=== PATIENT | female | born 1945 | race Asian ===

== ENCOUNTER 2019-11-24 19:33 | Inpatient (IN) | payer MEDICAID ==
[~2019-11-24] VITALS: Ht 152.4 cm; Wt 54.0 kg
[2019-11-24 20:08] LABS: Basophils # (auto) 0 10 ^3/uL (0-0.2); Basophils % (auto) 0.6 % (0.0-2.0); Eosinophils # (auto) 0.4 10 ^3/uL (0-0.8); Eosinophils % (auto) 5.4 % (0.0-7.0); Hematocrit 37.2 % (36.0-46.0); Hemoglobin 12.3 g/dL (12.2-16.2); Lymphocytes # (auto) 2.8 10 ^3/uL (0.4-5.4); Lymphocytes % (auto) 39.2 % (10.0-50.0); Mean Corpuscular Hemoglobin 30.5 pg (28.0-32.0); Mean Corpuscular Volume 92.6 fL (80.0-100.0); Monocytes # (auto) 0.5 10 ^3/uL (0-1.3); Monocytes % (auto) 7.3 % (0.0-12.0); Neutrophils # (auto) 3.4 10 ^3/uL (1.6-8.6); Neutrophils % (auto) 47.5 % (37.0-80.0); Nucleated Red Blood Cells % 0.1 %; Platelet Count (auto) 238 10^3/uL (140-450); Red Blood Cells 4.02 10^6/uL (4.0-5.20); Red Cell Distribution Width 13.1 % (11.8-14.3); White Blood Cell 7.2 10^3/uL (4.4-10.8)
[2019-11-24 20:39] LABS: Alanine Aminotransferase 39 U/L (13-56); Albumin 3.7 g/dL (3.4-5.0); Anion Gap 6 (5-15); Aspartate Aminotransferase 28 U/L (15-37); BUN/Creatinine Ratio 17.8; Blood Urea Nitrogen 13 mg/dL (7-18); Calcium 8.4 mg/dL (8.5-10.1); Carbon Dioxide 25 mmol/L (21-32); Chloride 110 mmol/L (98-107); GFR African American 100 mL/min; GFR Non-African American 83 mL/min; Glucose 130 mg/dL (74-106); Potassium 3.5 mmol/L (3.5-5.1); Sodium 141 mmol/L (136-145)
[2019-11-24 20:44] LABS: Alkaline Phosphatase 77 U/L (45-117); Bilirubin, Total 0.4 mg/dL (0.2-1.0); Total Protein 7.4 g/dL (6.4-8.2)
[2019-11-24 20:58] LABS: Urine Bacteria FEW /hpf (None Seen); Urine Blood Negative /uL (Negative); Urine Mucus FEW (None Seen); Urine Specific Gravity 1.003 (1.001-1.035); Urine WBC 6 /hpf (0 - 5)
[2019-11-24] MEDS ORDERED: cloNIDine HCL 0.1 MG TAB PO ONE (21:15)
[2019-11-24] MEDS ORDERED: ASPirin-EC 81 mg tab PO ONE (21:30)
[2019-11-25] VITALS (7 sets, daily range): BP systolic 123–159; BP diastolic 64–82
[2019-11-25] MEDS ORDERED: MORPHINE SULF INJ 2 MG/ML SYRINGE 1ML IV PRN (00:30)
[2019-11-25] MEDS ORDERED: ONDANSETRON HCL 4 MG/2 ML VIAL IV PRN (00:30)
[2019-11-25] MEDS ORDERED: TEMAZEPAM 15 MG CAP PO PRN (00:30)
[2019-11-25] MEDS ORDERED: NITROGLYCERIN 0.4 MG SL TAB SL PRN (00:30)
[2019-11-25] MEDS ORDERED: LOSA-69 PO (04:48)
[2019-11-25] MEDS ORDERED: ADENOSINE 45 MG in GIVE UN-DILUTED 0 ML IV STA (08:52)
[2019-11-25] MEDS ORDERED: ASPirin 81 mg TAB PO SCH (10:00)
[2019-11-25] MEDS: FAMOTIDINE 20 MG TAB PO SCH (10:05)
[2019-11-25] MEDS: hydrALAZINE HCL 25 MG TAB PO SCH ×2 (10:06→21:09)
[2019-11-25] MEDS ORDERED: cefTRIAXone 1GM/50ML D5W 50 ML IV ONE (11:00)
[2019-11-25] MEDS: ATORVASTATIN 20 MG TAB PO SCH (21:09)
[2019-11-25] MEDS: ACETAMINOPHEN 325 MG TAB PO PRN (21:09)
[2019-11-25] MEDS ORDERED: ATORVASTATIN 20 MG TAB PO SCH (22:00)
[2019-11-26] VITALS (7 sets, daily range): BP systolic 118–160; BP diastolic 63–94
[2019-11-26 06:08] LABS: Basophils # (auto) 0 10 ^3/uL (0-0.2); Basophils % (auto) 0.9 % (0.0-2.0); Eosinophils # (auto) 0.5 10 ^3/uL (0-0.8); Eosinophils % (auto) 8.4 % (0.0-7.0); Hematocrit 36.3 % (36.0-46.0); Hemoglobin 12.2 g/dL (12.2-16.2); Mean Corpuscular Hemoglobin 30.9 pg (28.0-32.0); Mean Corpuscular Hgb Conc. 33.7 g/dL (32.0-36.0); Mean Corpuscular Volume 91.6 fL (80.0-100.0); Monocytes # (auto) 0.4 10 ^3/uL (0-1.3); Monocytes % (auto) 7.8 % (0.0-12.0); Neutrophils # (auto) 2.7 10 ^3/uL (1.6-8.6); Neutrophils % (auto) 46.9 % (37.0-80.0); Nucleated Red Blood Cells % 0.1 %; Platelet Count (auto) 228 10^3/uL (140-450); Red Blood Cells 3.96 10^6/uL (4.0-5.20); Red Cell Distribution Width 13.2 % (11.8-14.3); White Blood Cell 5.7 10^3/uL (4.4-10.8)
[2019-11-26 06:21] LABS: Potassium 3.8 mmol/L (3.5-5.1)
[2019-11-26 06:26] LABS: BUN/Creatinine Ratio 25.7; Calcium 8.5 mg/dL (8.5-10.1)
[2019-11-26] MEDS: cefTRIAXone 1GM/50ML D5W 50 ML IV SCH (09:15)
[2019-11-26] MEDS: ASPirin 81 mg TAB PO SCH (09:18)
[2019-11-26] MEDS: FAMOTIDINE 20 MG TAB PO SCH (09:18)
[2019-11-26] MEDS: LOSARTAN POTASSIUM 50 MG TAB PO SCH (09:19)
[2019-11-26] MEDS: hydrALAZINE HCL 25 MG TAB PO SCH ×2 (09:19→21:57)
[2019-11-26 14:21] LABS: INR 0.92 (0.9-1.15); Partial Thromboplastin Time 25.1 sec (23.0-31.2)
[2019-11-26] MEDS: ATORVASTATIN 20 MG TAB PO SCH (21:57)
[2019-11-26] MEDS ORDERED: LORazepam 2MG/ML-1ML VIAL IV PRN (22:00)
[2019-11-27 05:00] VITALS: BP 129/81
[2019-11-27] MEDS: cefTRIAXone 1GM/50ML D5W 50 ML IV SCH (08:47)
[2019-11-27] MEDS: hydrALAZINE HCL 25 MG TAB PO SCH ×2 (08:49→21:55)
[2019-11-27] MEDS: LOSARTAN POTASSIUM 50 MG TAB PO SCH (08:49)
[2019-11-27 09:00] VITALS: BP 159/75
[2019-11-27] MEDS: ASPirin 81 mg TAB PO SCH (09:33)
[2019-11-27] MEDS: FAMOTIDINE 20 MG TAB PO SCH (09:33)
[2019-11-27] MEDS ORDERED: VANCOMYCIN 1GM/250ML 250 ML IV ONE ×2 (10:30→10:41)
[2019-11-27] MEDS ORDERED: LIDOCAINE 2%HCL (LOCAL ANESTH.) INJ 20ML MDV ONE (10:31)
[2019-11-27] MEDS ORDERED: VANCOMYCIN HCL 1000 MG VL ONE (10:55)
[2019-11-27] MEDS ORDERED: fentaNYL CITRATE 100 MCG/2 ML VL ONE (10:55)
[2019-11-27] MEDS ORDERED: MIDAZOLAM HCL 1MG/1ML-2 ML VIAL ONE (10:56)
[2019-11-27] MEDS: ceFAZolin 1GM/50ML 50 ML IV SCH ×2 (14:02→21:10)
[2019-11-27 17:00] VITALS: BP 134/75
[2019-11-27] MEDS: ACETAMINOPHEN 325 MG TAB PO PRN (17:36)
[2019-11-27] MEDS: AMIODARONE HCL 200 MG TAB PO SCH (17:53)
[2019-11-27] MEDS: ATORVASTATIN 20 MG TAB PO SCH (21:10)
[2019-11-27 22:00] VITALS: BP 155/92
[2019-11-28] MEDS: ceFAZolin 1GM/50ML 50 ML IV SCH (04:35)
[2019-11-28] MEDS: ACETAMINOPHEN 325 MG TAB PO PRN (04:36)
[2019-11-28 05:30] VITALS: BP 133/76
[2019-11-28 08:00] VITALS: BP 142/81
[2019-11-28] MEDS: AMIODARONE HCL 200 MG TAB PO SCH (09:02)
[2019-11-28] MEDS: FAMOTIDINE 20 MG TAB PO SCH (09:02)
[2019-11-28] MEDS: LOSARTAN POTASSIUM 50 MG TAB PO SCH (09:02)
[2019-11-28] MEDS: ASPirin 81 mg TAB PO SCH (09:03)
[2019-11-28] MEDS: hydrALAZINE HCL 25 MG TAB PO SCH (09:03)
[2019-11-28] MEDS: cefTRIAXone 1GM/50ML D5W 50 ML IV SCH (09:03)
[2019-11-28 12:00] VITALS: BP 141/89
[2019-11-28] MEDS ORDERED: ATOR20TA50 PO (13:42)
[2019-11-28] MEDS ORDERED: ASPI325T4 PO (13:42)
[2019-11-28] MEDS ORDERED: AMIO200T33 PO (13:46)
[2019-11-28] MEDS ORDERED: HYDR12.56 PO (13:47)
[2019-11-28] MEDS ORDERED: LOSA-69 PO (13:47)
[2019-11-28 14:08] VITALS: BP 141/89
[2019-11-28] MEDS ORDERED: AMLO10TA13 PO (14:10)
== END 2019-11-28 15:10 | disposition home or self-care (01) | DRG 171 ==
LOC: ER 19:33 → TELE 19:34 → TELE-WESTW 11-25 01:40
PROVIDERS: ADMIT Nurse Practitioner; ATTEND Internal Medicine Nephrology
PROC: 0JH606Z Insertion of Pacemaker, Dual Chamber into Chest Subcutaneous Tissue and Fascia, Open Approach (ICD-10-PCS; principal; 2019-11-27)
PROC: 02H63JZ Insertion of Pacemaker Lead into Right Atrium, Percutaneous Approach (ICD-10-PCS; 2019-11-27)
PROC: 02HK3JZ Insertion of Pacemaker Lead into Right Ventricle, Percutaneous Approach (ICD-10-PCS; 2019-11-27)
DX: I49.5 Sick sinus syndrome (principal); N39.0 Urinary tract infection, site not specified; I10 Essential (primary) hypertension; E78.5 Hyperlipidemia, unspecified; Z95.0 Presence of cardiac pacemaker; Z20.828 Contact with and (suspected) exposure to other viral communicable diseases
CPT/HCPCS: 33208; 36415; 70450; 70551; 71045; 78452; 80048; 80053; 81001; 82962; 83036; 84439; 84443; 84484; 85025; 85610; 85730; 86850; 86900; 86901; 87040; 87086; 93005; 93017; 93306; 93886; 93925; 99152; 99153; C1785; G0378; J0153; J0690; J0696; J2250

== ENCOUNTER 2021-11-02 10:43 | Emergency (ER) | payer MEDICAID ==
[~2021-11-02] VITALS: Ht 152.4 cm; Wt 53.8 kg
[~2021-11-02 10:43] MED LIST: AMIO200T33 PO; ATOR20TA50 PO; LOSA-69 PO
[2021-11-02 13:59] LABS: Basophils # (auto) 0 10 ^3/uL (0-0.2); Basophils % (auto) 0.5 % (0.0-2.0); Eosinophils # (auto) 0.2 10 ^3/uL (0-0.8); Eosinophils % (auto) 2.5 % (0.0-7.0); Hematocrit 38.5 % (36.0-46.0); Hemoglobin 12.8 g/dL (12.2-16.2); Lymphocytes # (auto) 3.1 10 ^3/uL (0.4-5.4); Mean Corpuscular Hemoglobin 30.6 pg (28.0-32.0); Mean Corpuscular Hgb Conc. 33.3 g/dL (32.0-36.0); Monocytes # (auto) 0.7 10 ^3/uL (0-1.3); Monocytes % (auto) 7.2 % (0.0-12.0); Neutrophils # (auto) 5.1 10 ^3/uL (1.6-8.6); Neutrophils % (auto) 55.8 % (37.0-80.0); Red Blood Cells 4.19 10^6/uL (4.0-5.20); Red Cell Distribution Width 12.9 % (11.8-14.3); White Blood Cell 9.2 10^3/uL (4.4-10.8)
[2021-11-02 14:05] VITALS: BP 122/68
[2021-11-02 14:22] LABS: Urine Bacteria NONE SEEN /hpf (None Seen); Urine Blood TRACE /uL (Negative); Urine Specific Gravity 1.017 (1.001-1.035); Urine WBC 68 /hpf (0 - 5)
[2021-11-02 14:23] LABS: Anion Gap 7 (5-15); Blood Urea Nitrogen 29 mg/dL (7-18); Carbon Dioxide 29 mmol/L (21-32); Chloride 105 mmol/L (98-107); Glucose 133 mg/dL (74-106); Sodium 141 mmol/L (136-145)
[2021-11-02 14:24] LABS: BUN/Creatinine Ratio 33.7; Calcium 9.4 mg/dL (8.5-10.1); GFR African American 83 mL/min; GFR Non-African American 68 mL/min
[2021-11-02] MEDS ORDERED: CIPR-173 PO (14:35)
== END 2021-11-02 14:40 | disposition home or self-care (01) ==
LOC: ER 10:43
DX: N39.0 Urinary tract infection, site not specified (principal); I12.9 Hypertensive chronic kidney disease with stage 1 through stage 4 chronic kidney disease, or unspecified chronic kidney disease; N18.2 Chronic kidney disease, stage 2 (mild); Z79.2 Long term (current) use of antibiotics; Z79.899 Other long term (current) drug therapy
CPT/HCPCS: 36415; 80048; 81001; 82962; 83036; 85025

== ENCOUNTER → 2022-09-13 | Outpatient (CLI) | payer MEDICAID ==
[~2022-09-13] VITALS: Ht 152.4 cm; Wt 49.9 kg
[~2022-09-13] MED LIST changes: +ADENOSINE 42 MG in GIVE UN-DILUTED 0 ML IV STA; +CIPR-173 PO; -LOSA-69 PO; +LOSA50TA46 PO
[2022-09-13 08:26] VITALS: BP 133/79
== END | disposition home or self-care (01) ==
LOC: XYW 07:24
PROVIDERS: ATTEND Internal Medicine
DX: R07.9 Chest pain, unspecified (principal); R07.89 Other chest pain
CPT/HCPCS: 78452; 93017; A9500; J0153

== ENCOUNTER 2023-07-27 11:19 | Emergency (ER) | payer MEDICAID ==
[~2023-07-27] VITALS: Ht 162.6 cm; Wt 55.0 kg
[~2023-07-27 11:19] MED LIST changes: -ADENOSINE 42 MG in GIVE UN-DILUTED 0 ML IV STA; +LOSA-534 PO; -LOSA50TA46 PO
[2023-07-27 13:34] VITALS: BP 147/72; PULSE 65; RESP 18; TEMP 97.9; O2SAT 98
[2023-07-27] MEDS: ACETAMINOPHEN 500 MG TAB PO ONE (14:00)
[2023-07-27] MEDS ORDERED: ACET-1080 PO (14:52)
[2023-07-27] MEDS ORDERED: CEPH500C PO (14:52)
== END 2023-07-27 15:04 | disposition home or self-care (01) ==
LOC: EDBD 11:19 → ER 11:19
DX: S01.01XA Laceration without foreign body of scalp, initial encounter (principal); S16.1XXA Strain of muscle, fascia and tendon at neck level, initial encounter; I10 Essential (primary) hypertension; E11.9 Type 2 diabetes mellitus without complications; E78.5 Hyperlipidemia, unspecified; Z95.0 Presence of cardiac pacemaker; Z79.2 Long term (current) use of antibiotics; Z79.899 Other long term (current) drug therapy; V43.52XA Car driver injured in collision with other type car in traffic accident, initial encounter; Y93.89 Activity, other specified; Y92.410 Unspecified street and highway as the place of occurrence of the external cause; Y99.8 Other external cause status
CPT/HCPCS: 12002; 70450; 72125

== ENCOUNTER → 2024-01-08 | Outpatient (CLI) | payer MEDICAID ==
[~2024-01-08] MED LIST changes: +ACET-1080 PO; +CEPH500C PO; +REGADENOSON 0.4 MG/5 ML SYRG IV ONE
[2024-01-08] MEDS: REGADENOSON 0.4 MG/5 ML SYRG IV ONE (12:17)
== END | disposition home or self-care (01) ==
LOC: XYW 10:51
PROVIDERS: ATTEND Internal Medicine
DX: I99.8 Other disorder of circulatory system (principal); R06.02 Shortness of breath
CPT/HCPCS: 78452; 93017; A9500; J2785

== ENCOUNTER → 2024-01-14 | Outpatient (CLI) | payer MEDICAID ==
[~2024-01-14] MED LIST changes: -REGADENOSON 0.4 MG/5 ML SYRG IV ONE
== END | disposition home or self-care (01) ==
LOC: XYW 08:40
PROVIDERS: ATTEND Internal Medicine
DX: I47.19 Other supraventricular tachycardia (principal)
CPT/HCPCS: 93306

== ENCOUNTER 2024-04-03 06:16 | Inpatient (IN) | payer MEDICAID ==
[2024-03-31 09:19] LABS: Urine Bacteria None Seen /hpf (None Seen)
[2024-03-31 09:57] LABS: INR 0.95 (0.9-1.15); Partial Thromboplastin Time 25.6 SEC (24.5-34.5); Prothrombin Time 10.1 sec (9.3-11.8)
[2024-03-31 09:58] LABS: Basophils # (auto) 0 10 ^3/uL (0-0.2); Basophils % (auto) 0.5 % (0.0-2.0); Eosinophils # (auto) 0.2 10 ^3/uL (0-0.8); Eosinophils % (auto) 3.5 % (0.0-7.0); Hemoglobin 13.4 g/dL (12.2-16.2); Lymphocytes # (auto) 1.9 10 ^3/uL (0.4-5.4); Lymphocytes % (auto) 29.7 % (10.0-50.0); Mean Corpuscular Hemoglobin 31.7 pg (28.0-32.0); Mean Corpuscular Hgb Conc. 34.3 g/dL (32.0-36.0); Mean Corpuscular Volume 92.5 fL (80.0-100.0); Monocytes # (auto) 0.3 10 ^3/uL (0-1.3); Neutrophils # (auto) 3.8 10 ^3/uL (1.6-8.6); Neutrophils % (auto) 61.3 % (37.0-80.0); Nucleated Red Blood Cells % 0.1 %; Platelet Count (auto) 233 10^3/uL (140-450); Red Blood Cells 4.21 10^6/uL (4.0-5.20); White Blood Cell 6.3 10^3/uL (4.4-10.8)
[2024-03-31 10:00] LABS: Urine Blood Negative /uL (Negative); Urine Clarity Clear (Clear); Urine Color Yellow (Yellow); Urine Mucus FEW (None Seen); Urine Protein, UAD Negative (Negative); Urine Specific Gravity 1.017 (1.001-1.035); Urine Squamous Epithelial Cell FEW /hpf (<5); Urine Urobilinogen Normal (Negative); Urine WBC 2 /hpf (0 - 5); Urine pH 6.5 (5.0-9.0)
[2024-03-31 10:11] LABS: Alkaline Phosphatase 81 U/L (46-116); Anion Gap 7 (5-15); BUN/Creatinine Ratio 17.6 (10.0-20.0); Blood Urea Nitrogen 16 mg/dL (9-23); Calcium 9.7 mg/dL (8.7-10.4); Carbon Dioxide 28 mmol/L (20-31); Chloride 106 mmol/L (98-107); Sodium 141 mmol/L (136-145)
[2024-03-31 10:12] LABS: Albumin 4.2 g/dL (3.2-4.8); Bilirubin, Total 0.9 mg/dL (0.2-1.0); Total Protein 6.8 g/dL (5.7-8.2)
[2024-03-31 10:16] LABS: Alanine Aminotransferase 44 U/L (7-40); Aspartate Aminotransferase 41 U/L (13-40); Glucose 301 mg/dL (74-106); Potassium 3.4 mmol/L (3.5-5.1)
[2024-04-03] VITALS (7 sets, daily range): BP systolic 118–128; BP diastolic 58–67; PULSE 66–75; RESP 16–18; TEMP 97.9–98.1; O2SAT 94–95
[~2024-04-03] VITALS: Ht 149.9 cm; Wt 58.6 kg
[2024-04-03] MEDS: ceFAZolin 2 GM/D5W100ml 100 ML IV ONE (06:43)
[2024-04-03] MEDS: TRANEXAMIC ACID 20 ML ONE (06:46)
[2024-04-03] MEDS: VANCOMYCIN HCL 1000 MG VL ONE (06:47)
[2024-04-03] MEDS: BUPIVACAINE HCL 50 ML ONE (07:08)
[2024-04-03] MEDS: ROPIVACAINE 0.5% (5MG/ML) 20ML AMPULE IJ ONE (07:08)
[2024-04-03] MEDS ORDERED: fentaNYL CITRATE 100 MCG/2 ML VL ONE (07:10)
[2024-04-03] MEDS ORDERED: ROCURONIUM 10MG/ML 10ML VIAL IV ONE (07:11)
[2024-04-03] MEDS ORDERED: PROPOFOL 10 MG/ML 20 ML IV ONE (07:11)
[2024-04-03] MEDS ORDERED: MIDAZOLAM HCL 2MG/2ML 2ml VIAL (1mg/ml) ONE (07:11)
[2024-04-03] MEDS ORDERED: DexAMETHasone SOD PHOS 10MG/1ML VIAL INJ ONE (07:12)
[2024-04-03] MEDS ORDERED: ONDANSETRON HCL 4 MG/2 ML VIAL ONE (07:12)
[2024-04-03] MEDS ORDERED: LIDOCAINE 1% INJ PF 5ML AMP ONE (07:39)
[2024-04-03] MEDS ORDERED: ePHEDrine SULFATE 50 MG/ML AMP ONE (07:53)
[2024-04-03] MEDS ORDERED: LABETALOL HCL 5 MG/ML ML 20ML VIAL IV ONE (08:10)
[2024-04-03] MEDS ORDERED: SUGAMMADEX 200mg/2ml Vial (100MG/ML) IV ONE (09:03)
[2024-04-03] MEDS: VANCOMYCIN HCL 1000 MG VL IV ONE (10:00)
[2024-04-03] MEDS ORDERED: HYDROcodone-ACET 10/325MG TAB PO PRN (10:30)
[2024-04-03] MEDS ORDERED: ONDANSETRON HCL 4 MG/2 ML VIAL IV PRN (10:30)
[2024-04-03] MEDS ORDERED: ACETAMINOPHEN 325 MG TAB PO PRN (10:30)
[2024-04-03] MEDS ORDERED: NITROGLYCERIN 0.4 MG SL TAB SL PRN (10:30)
[2024-04-03] MEDS ORDERED: LACTATED RINGER'S 1,000 ML IV SCH (10:30)
[2024-04-03] MEDS ORDERED: MORPHINE SULFATE INJ 2 MG/ml SYRG IV PRN (10:30)
--- NOTE | 2024-04-03 10:36 | DVHOP2 ---
Operative Report - 2 Report Details Date: 04/03/24 Preop Diagnosis: Right shoulder glenohumeral arthritis Postop Diagnosis: Right shoulder glenohumeral arthritis Surgeon: Cristhian Vu MD Anesthesiologist: Carlos sanchez CRNA Anesthesia: General, Regional Implant: Fx shoulder system, 10 mm humerus stem, 6 mm retentive liner, 36 mm glenosphere with standard glenosphere, 0 mm, four screws through the base plate Consent: The patient was informed of the risks and benefits of the procedure. These include but are not limited to complications of anesthesia, postoperative infection, incomplete relief of symptoms, recurrence of symptoms, damage to blood vessels, nerves and tendons, deep venous thrombosis, pulmonary embolism and possible need for repeat surgery in the future. Complications: None Estimated Blood Loss: 50 mL Indications for Surgery: The patient is a 78-year-old female who presented to the clinic with a history of chronic severe pain. Clinical and radiological evaluation demonstrated severe glenohumeral arthritis. Nonoperative and operative management options were discussed with her. Surgery in the form of shoulder arthroplasty was discussed. Benefits, risks and treatment alternatives were discussed. Specific complications of the surgery such as neurovascular injury, infection, arthrofibrosis, loss of limb or life were discussed. The patient decided to proceed with the surgical option. Name of Procedure Performed Right reverse total shoulder arthroplasty with open biceps tenodesis Procedure Details Procedure Details: The patient was identified in the preoperative holding area and the surgical site was marked. The consent was verified. The patient was brought into the operating room and placed supine on the operating table. General anesthesia was administered. The patient was brought into the beachchair position at 45 degrees angle. The extremity was prepped and draped in the usual sterile manner with Betadine and ChloraPrep. A timeout was called out to confirm the identity of the patient, the nature of surgery, the site of surgery, development of implants and x-rays and allergies to medications. All the bony prominences were appropriately padded Exposure: A standard deltopectoral approach was used. An incision was made from the superior portion of the coracoid to the upper arm lateral to the axillary line. The skin and the subcutaneous tissue were dissected. The deep fascia was incised. The cephalic vein was identified. The coracoid was identified and the conjoined tendon was also identified. The pectoralis tendon, approximately 1 cm was released. The biceps tendon was identified and tenodesis was carried out. This was sutured to the pectoralis major tendon with the help of FiberWire suture and was cut proximally. Honre retractors were inserted. Adequate exposure was noted. The deltoid was released with the help of a Cruz elevator for better exposure. The subscapularis tendon was identified. The subscapularis tendon was released. Circumflex arteries and veins were coagulated. This was whipstitched for later identification and possible repair. The humeral head was now exposed with external rotation and release of the inferior capsule. This was gently dislocated using a Darrach retractor. Significant arthritis with full-thickness cartilage defect was noted. Significant osteophytes including large humeral head inferior osteophyte were also noted. A retractor was inserted below the CA ligament as well. There was a partial tear of supraspinatus and infraspinatus with some footprint exposed. Humeral cut: The retroversion was set to 30 degrees. An external guide was used and affixed to the bone with the help of guide pins. Next, a saw was used to create the humeral cut. This was just above the rotator cuff footprint. Next, a small drill was used to find the intramedullary canal. Next, the humeral side was now prepared. This was now reamed up to 10 mm. Glenoid exposure and implantation of glenoid prosthesis: A Darrach retractor was then inserted to retract the humeral head and expose the glenoid. Release of the anterior and posterior capsule was carried out. Release of the middle and inferior glenohumeral ligament was carried out. Superior labrum and biceps were removed. Significant cartilage damage of the glenoid was noted. Minimal retroversion was noted. A tug test was performed to confirm the position of the axillary nerve which was out of the surgical field. The inferior capsule was left intact and was released only with the help of a blunt elevator. Next, the center of the glenoid was marked with the help of a Bovie using the biceps and the coracoid as landmarks. Next a guide was inserted, a guidewire was inserted through the central portion. This was found to be in anatomic location, slightly inferior to the center. Next the central reamer was inserted. Next the hand-held peripheral reamer was inserted. The periphery was reamed, minimal cartilage was removed. Appropriate soft tissue resection was carried out. Minimal cartilage was removed to preserve the underlying bone. Next the baseplate was inserted with the help of an chief librarian music department A central post was applied to the final implant on the back table and inserted with gentle taps. It was rotated to align the screws in the appropriate directions. Next a drill guide was used to drill the hole for the screws. Locking and nonlocking screws were used for excellent compression and fixation. The glenosphere was now implanted on top of the baseplate over the guidewire with the screw. The screw was rotated over the glenosphere for excellent fixation. No impingement was noted. A Chary was used to test the stability of baseplate as well as the glenosphere and was found to be very secure. Next, a trial stem was inserted. Next, a provisional soft tissue tensioning assessment was done with an attempt to reduce with a 3 mm trial liner. This was found to have 2 mm of shuck. The final stem and liner was opened up. The joint was now trialed again with a 3 and six mm liner and 6 was noticed to be excellent. A final 6 mm implant was opened up and inserted on the humeral stem. This was tapped and excellent fixation was noted. Excellent stability and range of motion was noted, abduction of 120 and flexion up to 120 degrees. The shoulder did not dislocate with adduction, internal rotation and extension or with abduction and external rotation. Shuck test was acceptable with approximately 1 mm of gap with manual longitudinal traction. The fixation was tested with the help of a Chary clamp. Excellent fixation was noted. Irrigation was given with bulb syringe lavage with bacitracin and normal saline, Betadine and vancomycin powder was applied as well. All bony debris was also removed. C-arm was used throughout the procedure for evaluation of guidewire, humeral cut, baseplate and glenosphere position and finally humerus stem position and joint reduction. The subscapularis was approximated with the help of looped suture tapes through the bone tunnel. Some approximation was noted. The deep tissue, skin and the subcutaneous tissue were closed with 0 Vicryl, 2-0 Vicryl, 3-0 Monocryl and daisy. Sterile dressing was applied. The patient was placed in a shoulder immobilizer. Condition Good Disposition Still a Patient CRISTHIAN VU MD Apr 03, 2024 10:36
[2024-04-03] MEDS ORDERED: ONDANSETRON HCL 4 MG/2 ML VIAL IV ONE (10:45)
[2024-04-03] MEDS: hydrALAZINE HCL 20 MG/ML VL ONE (11:14)
[2024-04-03] MEDS: hydrALAZINE HCL 20 MG/ML VL IV PRN (11:18)
[2024-04-03] MEDS: HYDROmorphone HCL 2 MG/ML VL/or syr IV PRN ×2 (11:32→11:48)
[2024-04-03] MEDS: CLINDAMYCIN 600MG IV 50 ML IV SCH (12:00)
[2024-04-03] MEDS ORDERED: SEMA3TAB2 (13:31)
[2024-04-03] MEDS ORDERED: METO25TA93 (13:31)
[2024-04-03] MEDS ORDERED: HYDR12.55 (13:31)
[2024-04-03] MEDS ORDERED: FLEC1TAB PO (13:31)
[2024-04-03 14:10] LABS: Chloride 107 mmol/L (98-107); Potassium 4.3 mmol/L (3.5-5.1); Sodium 141 mmol/L (136-145)
[2024-04-03 14:11] LABS: Calcium 8.8 mg/dL (8.7-10.4)
[2024-04-03 14:16] LABS: BUN/Creatinine Ratio 22.8 (10.0-20.0); Blood Urea Nitrogen 18 mg/dL (9-23)
[2024-04-03 14:21] LABS: Glucose 155 mg/dL (74-106)
[2024-04-03] MEDS ORDERED: HYDROmorphone HCL 2 MG/ML VL/or syr IV PRN (14:30)
[2024-04-03] MEDS ORDERED: DEXTROSE (50%) 50ML SYRG IV PRN (14:30)
[2024-04-03] MEDS: LACTATED RINGER'S 1,000 ML IV SCH (14:30)
[2024-04-03] MEDS ORDERED: guaiFENesin 200 MG/10 ML UD PO PRN (14:30)
--- NOTE | 2024-04-03 14:37 | DVHHP2 ---
Review of Systems Allergies: Coded Allergies: NO KNOWN ALLERGIES (Unverified , 09/13/22) Medications Current Medications Medications Dose Ordered Sig/Stanley Route Start Time Stop Time Status Last Admin Dose Admin Clindamycin Phosphate 50 ml @ 50 mls/hr Q6HR IV 04/03/24 12:00 04/04/24 00:59 Acetaminophen 650 mg Q6HP PRN PO 04/03/24 10:30 Ondansetron HCl 4 mg Q6HP PRN IV 04/03/24 10:30 Docusate Sodium 100 mg Q12HR PO 04/03/24 22:00 Acetaminophen/ Hydrocodone Bitart 1 tab Q4HP PRN PO 04/03/24 10:30 Nitroglycerin 0.4 mg Q5MINP PRN SL 04/03/24 10:30 Morphine Sulfate 2 mg Q30M PRN IV 04/03/24 10:30 Hydromorphone HCl 0.25 mg Q10M PRN IV 04/03/24 10:45 04/03/24 18:00 04/03/24 11:48 0.25 MG Atorvastatin Calcium 20 mg HS PO 04/03/24 22:00 UNV Losartan Potassium 50 mg DAILY PO 04/04/24 10:00 UNV Lactated Ringer's 1,000 ml @ 75 mls/hr [id number] IV 04/03/24 14:30 UNV Hydromorphone HCl 1 mg Q3HP PRN IV 04/03/24 14:30 UNV Flecainide Acetate 50 mg Q12HR PO 04/03/24 22:00 UNV Metoprolol Succinate 25 mg DAILY PO 04/04/24 10:00 UNV Diagnostic Test (Pha) 1 strip ACHS 04/03/24 17:00 UNV Insulin Human Regular ACHS SC 04/03/24 17:00 UNV Dextrose 50 ml UD PRN IV 04/03/24 14:30 UNV Guaifenesin 200 mg Q6HP PRN PO 04/03/24 14:30 UNV Exam Vital Signs Vital Signs Date Time Temp Pulse Resp B/P (MAP) Pulse Ox O2 Delivery O2 Flow Rate FiO2 04/03/24 13:35 97.9 70 18 128/64 (85) 94 97.9 04/03/24 13:26 Room Air* 0 21 Labs/Xrays Labs Test 04/03/24 13:52 04/03/24 12:51 03/31/24 09:13 Range/Units Sodium Level 141 136-145 mmol/L Potassium Level 4.3 3.5-5.1 mmol/L Chloride Level 107 98-107 mmol/L Carbon Dioxide Level 26 20-31 mmol/L Blood Urea Nitrogen 18 9-23 mg/dL Creatinine 0.79 0.550-1.02 mg/dL Glomerular Filtration Rate Calc 77 >90 mL/min BUN/Creatinine Ratio 22.8 H 10.0-20.0 Serum Glucose 155 H 74-106 mg/dL Calcium Level 8.8 8.7-10.4 mg/dL POC Glucose 119 H 70-106 mg/dl White Blood Count 6.3 4.4-10.8 10^3/uL Red Blood Count 4.21 4.0-5.20 10^6/uL Hemoglobin 13.4 12.2-16.2 g/dL Hematocrit 39.0 36.0-46.0 % Mean Corpuscular Volume 92.5 80.0-100.0 fL Mean Corpuscular Hemoglobin 31.7 28.0-32.0 pg Mean Corpuscular Hemoglobin Concent 34.3 32.0-36.0 g/dL Red Cell Distribution Width 13.0 11.8-14.3 % Platelet Count 233 140-450 10^3/uL Mean Platelet Volume 7.6 6.9-10.8 fL Neutrophils (%) (Auto) 61.3 37.0-80.0 % Lymphocytes (%) (Auto) 29.7 10.0-50.0 % Monocytes (%) (Auto) 5.0 0.0-12.0 % Eosinophils (%) (Auto) 3.5 0.0-7.0 % Basophils (%) (Auto) 0.5 0.0-2.0 % Neutrophils # (Auto) 3.8 1.6-8.6 10 ^3/uL Lymphocytes # (Auto) 1.9 0.4-5.4 10 ^3/uL Monocytes # (Auto) 0.3 0-1.3 10 ^3/uL Eosinophils # (Auto) 0.2 0-0.8 10 ^3/uL Basophils # (Auto) 0 0-0.2 10 ^3/uL Nucleated Red Blood Cells 0.1 % Prothrombin Time 10.1 9.3-11.8 sec Prothrombin Time INR 0.95 0.9-1.15 Activated Partial Thromboplast Time 25.6 24.5-34.5 SEC Urine Color Yellow Yellow Urine Clarity Clear Clear Urine pH 6.5 5.0-9.0 Urine Specific [place] 1.017 1.001-1.035 Urine Protein Negative Negative Urine Ketones Negative Negative Urine Blood Negative Negative /uL Urine Nitrite Negative Negative Urine Bilirubin Negative Negative Urine Urobilinogen Normal Negative mg/dL Urine Leukocyte Esterase Negative Negative /uL Urine RBC 1 0 - 4 /hpf Urine WBC 2 0 - 5 /hpf Urine Squamous Epithelial Cells Few <5 /hpf Urine Bacteria None seen None Seen /hpf Urine Mucus Few None Seen Urine Glucose 4+ H Normal mg/dL Total Bilirubin 0.9 0.2-1.0 mg/dL Aspartate Amino Transferase (AST) 41 H 13-40 U/L Alanine Aminotransferase (ALT) 44 H 7-40 U/L Alkaline Phosphatase 81 46-116 U/L Total Protein 6.8 5.7-8.2 g/dL Albumin 4.2 3.2-4.8 g/dL Assessment/Plan Assessment/Plan see dictated note Plan discussed with: Patient, Daughter My Orders Orders - PAM CORTEZ MD Procedure Category Date Status Time Lactated Ringer's PHA 04/03/24 Logged 14:30 Hydromorphone PHA 04/03/24 Logged Injection (Dilaudid 14:30 Ok To Leave On Tele ORDERS 04/03/24 Transmitted 14:23 Flecainide Tablet PHA 04/03/24 Logged (Tambocor Tablet) 22:00 Metoprolol Xl PHA 04/04/24 Logged Succinate (Toprol Xl) 10:00 Glucose Blood PHA 04/03/24 Logged (Accu-Chek Comfort 17:00 Insulin R (Human) PHA 04/03/24 Logged (Insulin R) 17:00 Dextrose 50% Syringe PHA 04/03/24 Logged 14:30 Complete Blood Count LAB 04/04/24 Verified 06:00 Comprehensive LAB 04/04/24 Verified Metabolic Panel 06:00 Hemoglobin A1c LAB 04/04/24 Verified 06:00 Guaifenesin Plain PHA 04/03/24 Logged Liquid (Robitussin [place] 14:30 Chest Portable XY 04/03/24 Logged 14:33 Date of Service: Apr 03, 2024 Billing Provider: PAM CORTEZ MD Common Visit Codes: 35205-BSVQFLF INP/OBS CARE (HIGH) Secondary Visit Codes: [id number] CARE PLAN 30 MINUTES PAM CORTEZ MD Apr 03, 2024 14:37
[2024-04-03 14:46] LABS: Anion Gap 8 (5-15); Carbon Dioxide 26 mmol/L (20-31)
--- NOTE | 2024-04-03 14:57 | DVH ---
CHEST RADIOGRAPH Indication: a fib Technique: Single frontal view of the chest was obtained COMPARISON: CHEST XRAY 1 VIEW on DOS: 11/28/19, CHEST PORTABLE on DOS: 11/27/19 FINDINGS: There is increased interstitial prominence, greater centrally. No pneumothorax or consolidative infil trates. There is a calcified granuloma in the right upper lobe. The heart is enlarged. The aortic ar ch is calcific. There are postoperative changes of left pacemaker and right shoulder reverse total a rthroplasty. IMPRESSION: 1. Increased interstitial prominence may be due to reactive airways disease or mild CHF. 2. Cardiomegaly and left chest pacemaker. 3. Recent postoperative changes of right shoulder arthroplasty, not fully imaged here.
--- NOTE | 2024-04-03 15:18 | DVHHP ---
HISTORY OF PRESENT ILLNESS: The patient is a 78-year-old lady who was admitted after she underwent surgery on the right shoulder for DJD of the shoulder. The patient at this time denies any significant pain. No chest pain or shortness of breath. No nausea or vomiting. REVIEW OF SYSTEMS: Review of rest of systems are otherwise currently negative. PAST MEDICAL HISTORY: Significant for paroxysmal atrial fibrillation and status post pacemaker for sick sinus, hyperlipidemia, hypertension, diabetes mellitus. MEDICATIONS: Include Lipitor, flecainide, metoprolol, hydrochlorothiazide, semaglutide. ALLERGIES: No known drug allergies. SOCIAL HISTORY: No history of smoking or alcohol. Lives at home with her daughter. FAMILY HISTORY: Negative. PHYSICAL EXAMINATION: GENERAL: The patient is awake, alert. VITAL SIGNS: Temperature 97.9, pulse 70 per minute, blood pressure 128/64. SHEENT: Unremarkable. NECK: There is no JVD, no pedal edema. LUNGS: Equal bilaterally. No added sounds. CARDIOVASCULAR: S1, S2 is regular, no murmurs. ABDOMEN: Soft. There is no organomegaly. NEUROLOGIC: Nonfocal. MUSCULOSKELETAL: The right shoulder is currently in sling. ASSESSMENT AND PLAN: * Diabetes mellitus. She was placed on sliding scale insulin and hemoglobin A1c will be checked. * Hypertension. * History of atrial fibrillation for which she will continue on flecainide. * Status post pacemaker for sick sinus syndrome. * Hyperlipidemia. * Status post right shoulder surgery for which she will be placed on pain medication and followed up by Dr. Vu. Advance care planning for the patient. She is a full code. Time spent was 19 minutes. MD TRUDY Yancey/ELDER TID: [id number] RECEIPT: [id number]
--- NOTE | 2024-04-03 16:54 | DVH ---
C-ARM FLUOROSCOPY: PROCEDURE: Right shoulder ORIF FLUOROSCOPY TIME: 7.4 seconds DAP: 0.53 mgy FINDINGS: Spot intraoperative C arm radiographs demonstrating right shoulder ORIF. IMPRESSION: Please refer to surgical report for detailed findings.
[2024-04-03] MEDS: InsuLIN REG 1unit/0.01ml Soln (100units/ml) SC SCH (17:00)
[2024-04-03] MEDS: ACCU-CHEK COMFORT CURVE STRIP VI SCH (17:03)
[2024-04-03] MEDS: DOCUSATE SOD 100 MG CAP PO SCH (21:21)
[2024-04-03] MEDS: ATORVASTATIN 20 MG TAB PO SCH (21:21)
[2024-04-03] MEDS: FLECAINIDE ACETATE 50 MG TAB PO SCH (21:22)
[2024-04-03] MEDS ORDERED: AMIODARONE HCL 200 MG TAB PO SCH (22:00)
[2024-04-04 01:00] VITALS: BP 125/59; PULSE 64; RESP 17; TEMP 98; O2SAT 94
[2024-04-04] MEDS: CLINDAMYCIN 600MG IV 50 ML IV SCH (03:50)
[2024-04-04 05:00] VITALS: BP 134/68; PULSE 75; RESP 18; TEMP 97.7; O2SAT 99
[2024-04-04 05:36] LABS: Basophils # (auto) 0 10 ^3/uL (0-0.2); Eosinophils # (auto) 0 10 ^3/uL (0-0.8); Hematocrit 30.6 % (36.0-46.0); Hemoglobin 10.4 g/dL (12.2-16.2); Lymphocytes # (auto) 2.3 10 ^3/uL (0.4-5.4); Lymphocytes % (auto) 13.3 % (10.0-50.0); Mean Corpuscular Hemoglobin 31.7 pg (28.0-32.0); Mean Corpuscular Hgb Conc. 33.9 g/dL (32.0-36.0); Mean Corpuscular Volume 93.6 fL (80.0-100.0); Monocytes # (auto) 0.9 10 ^3/uL (0-1.3); Monocytes % (auto) 5.3 % (0.0-12.0); Neutrophils % (auto) 81.4 % (37.0-80.0); Platelet Count (auto) 192 10^3/uL (140-450); Red Blood Cells 3.27 10^6/uL (4.0-5.20); Red Cell Distribution Width 13.2 % (11.8-14.3); White Blood Cell 17.2 10^3/uL (4.4-10.8)
[2024-04-04 05:53] LABS: Alanine Aminotransferase 34 U/L (7-40); Albumin 3.5 g/dL (3.2-4.8); Alkaline Phosphatase 61 U/L (46-116); Anion Gap 11 (5-15); Calcium 8.8 mg/dL (8.7-10.4); Carbon Dioxide 22 mmol/L (20-31); Potassium 3.5 mmol/L (3.5-5.1); Total Protein 5.9 g/dL (5.7-8.2)
[2024-04-04 06:04] LABS: Aspartate Aminotransferase 46 U/L (13-40); Chloride 97 mmol/L (98-107); Glucose 498 mg/dL (74-106); Sodium 130 mmol/L (136-145)
[2024-04-04 06:07] LABS: Blood Urea Nitrogen 16 mg/dL (9-23)
[2024-04-04 08:00] VITALS: PULSE 70; RESP 16; O2SAT 97
[2024-04-04 09:00] VITALS: BP 123/61; PULSE 70; RESP 16; TEMP 98.4; O2SAT 96
[2024-04-04] MEDS: METOPROLOL SUCCINATE XL 50 MG TAB PO SCH (09:36)
[2024-04-04] MEDS: LOSARTAN POTASSIUM 50 MG TAB PO SCH (09:48)
[2024-04-04] MEDS ORDERED: CEPH500C PO (10:46)
[2024-04-04] MEDS ORDERED: TRAM-626 PO (10:46)
--- NOTE | 2024-04-04 11:21 | DVHDS2 ---
Discharge Summary Date of Admission Apr 03, 2024 at 10:58 Date of Discharge: Apr 04, 2024 Admitting Diagnosis Severe right shoulder arthritis Labs/Diagnostic Data: Laboratory Results Test 04/04/24 06:46 04/04/24 04:47 03/31/24 09:13 POC Glucose 198 mg/dl (70-106) White Blood Count 17.2 10^3/uL (4.4-10.8) Red Blood Count 3.27 10^6/uL (4.0-5.20) Hemoglobin 10.4 g/dL (12.2-16.2) Hematocrit 30.6 % (36.0-46.0) Mean Corpuscular Volume 93.6 fL (80.0-100.0) Mean Corpuscular Hemoglobin 31.7 pg (28.0-32.0) Mean Corpuscular Hemoglobin Concent 33.9 g/dL (32.0-36.0) Red Cell Distribution Width 13.2 % (11.8-14.3) Platelet Count 192 10^3/uL (140-450) Mean Platelet Volume 7.8 fL (6.9-10.8) Neutrophils (%) (Auto) 81.4 % (37.0-80.0) Lymphocytes (%) (Auto) 13.3 % (10.0-50.0) Monocytes (%) (Auto) 5.3 % (0.0-12.0) Eosinophils (%) (Auto) 0.0 % (0.0-7.0) Basophils (%) (Auto) 0.0 % (0.0-2.0) Neutrophils # (Auto) 14.0 10 ^3/uL (1.6-8.6) Lymphocytes # (Auto) 2.3 10 ^3/uL (0.4-5.4) Monocytes # (Auto) 0.9 10 ^3/uL (0-1.3) Eosinophils # (Auto) 0 10 ^3/uL (0-0.8) Basophils # (Auto) 0 10 ^3/uL (0-0.2) Nucleated Red Blood Cells 0.0 % Sodium Level 130 mmol/L (136-145) Potassium Level 3.5 mmol/L (3.5-5.1) Chloride Level 97 mmol/L (98-107) Carbon Dioxide Level 22 mmol/L (20-31) Anion Gap 11 (5-15) Blood Urea Nitrogen 16 mg/dL (9-23) Creatinine 0.80 mg/dL (0.550-1.02) Glomerular Filtration Rate Calc 75 mL/min (>90) BUN/Creatinine Ratio 20.0 (10.0-20.0) Serum Glucose 498 mg/dL (74-106) Hemoglobin A1c 6.2 % A1C (<5.7) Calcium Level 8.8 mg/dL (8.7-10.4) Total Bilirubin 1.0 mg/dL (0.2-1.0) Aspartate Amino Transferase (AST) 46 U/L (13-40) Alanine Aminotransferase (ALT) 34 U/L (7-40) Alkaline Phosphatase 61 U/L (46-116) Total Protein 5.9 g/dL (5.7-8.2) Albumin 3.5 g/dL (3.2-4.8) Prothrombin Time 10.1 sec (9.3-11.8) Prothrombin Time INR 0.95 (0.9-1.15) Activated Partial Thromboplast Time 25.6 SEC (24.5-34.5) Urine Color Yellow (Yellow) Urine Clarity Clear (Clear) Urine pH 6.5 (5.0-9.0) Urine Specific [place] 1.017 (1.001-1.035) Urine Protein Negative (Negative) Urine Ketones Negative (Negative) Urine Blood Negative /uL (Negative) Urine Nitrite Negative (Negative) Urine Bilirubin Negative (Negative) Urine Urobilinogen Normal mg/dL (Negative) Urine Leukocyte Esterase Negative /uL (Negative) Urine RBC 1 /hpf (0 - 4) Urine WBC 2 /hpf (0 - 5) Urine Squamous Epithelial Cells Few /hpf (<5) Urine Bacteria None seen /hpf (None Seen) Urine Mucus Few (None Seen) Urine Glucose 4+ mg/dL (Normal) Other Laboratory Tests 04/04/24 04:47 Brief Hx & Hospital Course: HISTORY OF PRESENT ILLNESS: The patient is a 78-year-old lady who was admitted after she underwent surgery on the right shoulder for DJD of the shoulder. The patient at this time denies any significant pain. No chest pain or shortness of breath. No nausea or vomiting. Course of hospitalization: Patient was placed in right shoulder, extremity immobilizer. Postoperatively, the patient was recovery has been uneventful. She will be discharged home and is instructed to continue all home medications. She will follow up with her PCP as well as orthopedic surgeon within 1-2 weeks. She was instructed to continue using arm immobilizer, with patient had breaks from immobilizer as needed daily. Patient will be provided Keflex 500 mg p.o. 4 times a day x1 day. She will also be provided tramadol 50 mg p.o. q.8 hours for [id number] pain not relieved by [id number] medications. Physical examination General: Alert and Oriented x3. No acute distress. Well-nourished. Eyes: EOMI. Anicteric. HENT: Moist mucous membranes. Lungs: Clear to auscultation bilaterally. No accessory muscle use. Cardiovascular: Regular rate and rhythm. No murmur. No JVD. Abdomen: Soft, non-tender and non-distended. No palpable masses. Extremities: No edema. Non-tender. Right arm immobilizer Skin: No rashes or lesions. Warm. Neurologic: No focal neurological deficits. CN II-XII grossly intact, but not individually tested. Psychiatric: Cooperative. Appropriate mood and affect. Total time spent with patient discussing and formulating plan of care: 35 minutes. This medical document was created using an electronic medical record system with [employer] dictation system. Although this document has been carefully reviewed, there may still be some phonetic and typographical errors. These areas are purely typographical due to imperfections of the software programs, and do not reflect any compromise in the patient's medical care. Consults/Reason for consult Orthopedic surgery: Degenerative joint disease and arthritis of right shoulder Condition at Discharge: Good Final Diagnosis/Problems List Right shoulder glenohumeral arthritis, Right reverse total shoulder arthroplasty with open biceps tenodesis Secondary Diagnosis: Diabetes Mellitus Primary hypertension Atrial fibrillation Hypokalemia History of PPI Discharge Disposition: Home Discharge Instruct/Medications Diet: Consistent carbohydrate, Cardiac 2g Na,low cholest Activity: No Restrictions, As Tolerated Follow Up/Referral: Dr. Vu in 1-2 weeks PCP in 1-2 weeks Medications: Keflex 500mg po QiD x 4 doses Tramadal 50mg q8h prn Continue all home medications 36 Discharge Statement: "Patient was advised to return to the ER or call 911 if any headaches, dizziness, shortness of breath, chest pain, abdominal pain, bleeding, fevers, or worsening of medical condition. Patient was counseled about treatment plan, medications, possible side effects, patientverbalized understanding. All questions were answered to the best of my ability. This discharge took greater then 30 minutes in planning, reviewing documentation, counseling the patient, and discussing with other team members." ASSESSMENT ASSESSMENT Assessment Right shoulder glenohumeral arthritis, Right reverse total shoulder arthroplasty with open biceps tenodesis Date of Service: Apr 04, 2024 Billing Provider: BERTA GRAMAJO NP Common Visit Codes: 95898-ZIB/OBS DISCH DAY >30min BERTA GRAMAJO NP Apr 04, 2024 11:21
[2024-04-04 11:23] VITALS: BP 123/61; PULSE 70; RESP 16; TEMP 98.4; O2SAT 96
== END 2024-04-04 12:35 | disposition home or self-care (01) | DRG 322 ==
LOC: SUR 06:16 → OVERFLOW 10:58 → CENTRAL 13:25 → TELE-CENTR 14:49
PROVIDERS: ADMIT Orthopaedic Surgery Sports Medicine; ATTEND Orthopaedic Surgery Sports Medicine
PROC: 0LS30ZZ Reposition Right Upper Arm Tendon, Open Approach (ICD-10-PCS; 2024-04-03)
PROC: 0RRJ00Z Replacement of Right Shoulder Joint with Reverse Ball and Socket Synthetic Substitute, Open Approach (ICD-10-PCS; principal; 2024-04-03 07:13)
DX: M13.811 Other specified arthritis, right shoulder (principal); E11.9 Type 2 diabetes mellitus without complications; E78.5 Hyperlipidemia, unspecified; I10 Essential (primary) hypertension; I48.0 Paroxysmal atrial fibrillation; E87.6 Hypokalemia; Z95.0 Presence of cardiac pacemaker
CPT/HCPCS: 36415; 71045; 73020; 76000; 80048; 80053; 81001; 82962; 83036; 85025; 85610; 85730; 86850; 86900; 86901; A4565; G0378; J1100; J1815; J2250; J2405; J2704; J3490

== ENCOUNTER 2024-07-31 07:02 | Inpatient (IN) | payer MEDICAID ==
[2024-07-29 10:41] LABS: Urine Bacteria None Seen /hpf (None Seen)
[2024-07-29 10:48] LABS: Basophils # (auto) 0 10 ^3/uL (0-0.2); Basophils % (auto) 0.6 % (0.0-2.0); Eosinophils # (auto) 0.3 10 ^3/uL (0-0.8); Eosinophils % (auto) 3.3 % (0.0-7.0); Hematocrit 38.8 % (36.0-46.0); Hemoglobin 13.4 g/dL (12.2-16.2); Lymphocytes % (auto) 25.4 % (10.0-50.0); Mean Corpuscular Hemoglobin 31.3 pg (28.0-32.0); Mean Corpuscular Hgb Conc. 34.6 g/dL (32.0-36.0); Mean Corpuscular Volume 90.4 fL (80.0-100.0); Monocytes # (auto) 0.7 10 ^3/uL (0-1.3); Monocytes % (auto) 8.8 % (0.0-12.0); Neutrophils # (auto) 4.9 10 ^3/uL (1.6-8.6); Neutrophils % (auto) 61.9 % (37.0-80.0); Platelet Count (auto) 231 10^3/uL (140-450); Red Blood Cells 4.29 10^6/uL (4.0-5.20); Red Cell Distribution Width 13.6 % (11.8-14.3); White Blood Cell 7.8 10^3/uL (4.4-10.8)
[2024-07-29 10:57] LABS: Urine Blood TRACE /uL (Negative); Urine Clarity Clear (Clear); Urine Color Yellow (Yellow); Urine Hyaline Cast FEW /lpf (0 - 2); Urine Protein, UAD Negative (Negative); Urine Specific Gravity 1.015 (1.001-1.035); Urine Squamous Epithelial Cell FEW /hpf (<5); Urine Urobilinogen Normal (Negative); Urine WBC 14 /HPF (0-5)
[2024-07-29 11:03] LABS: INR 0.96 (0.9-1.15); Prothrombin Time 10.2 sec (9.3-11.8)
[2024-07-29 11:13] LABS: Alanine Aminotransferase 33 U/L (7-40); Albumin 4.4 g/dL (3.2-4.8); Alkaline Phosphatase 84 U/L (46-116); Anion Gap 9 (5-15); Aspartate Aminotransferase 36 U/L (13-40); Blood Urea Nitrogen 18 mg/dL (9-23); Calcium 9.8 mg/dL (8.7-10.4); Carbon Dioxide 29 mmol/L (20-31); Chloride 103 mmol/L (98-107); Sodium 141 mmol/L (136-145); Total Protein 7.2 g/dL (5.7-8.2)
[2024-07-29 11:14] LABS: Glucose 111 mg/dL (74-106)
[~2024-07-31] VITALS: Ht 149.9 cm; Wt 61.3 kg
[~2024-07-31 07:02] MED LIST changes: -ACET-1080 PO; -AMIO200T33 PO; -CEPH500C PO; +CHOL20007 OR; -CIPR-173 PO; +FLEC1TAB PO; +GABA-1308 PO; +HYDR12.55; -LOSA-534 PO; +METO25TA93; +SEMA3TAB2
[2024-07-31] MEDS ORDERED: KETAMINE 50mg/ML 1ml syringe ONE (07:18)
[2024-07-31] MEDS ORDERED: ROCURONIUM 10MG/ML 10ML VIAL IV ONE (07:19)
[2024-07-31] MEDS ORDERED: ONDANSETRON HCL 4 MG/2 ML VIAL ONE (07:19)
[2024-07-31] MEDS ORDERED: MIDAZOLAM HCL 2MG/2ML 2ml VIAL (1mg/ml) ONE (07:19)
[2024-07-31] MEDS ORDERED: SODIUM CHLORIDE LOCK 10 ML ONE (07:19)
[2024-07-31] MEDS ORDERED: DexAMETHasone SOD PHOS 10MG/1ML VIAL INJ ONE (07:19)
[2024-07-31] MEDS ORDERED: LIDOCAINE HCL 2% TOP JELLY 5ML TOP ONE (07:19)
[2024-07-31] MEDS ORDERED: fentaNYL CITRATE 100 MCG/2 ML VL ONE (07:19)
[2024-07-31] MEDS ORDERED: LIDOCAINE 1% INJ PF 5ML AMP ONE (07:19)
[2024-07-31] MEDS ORDERED: ETOMIDATE (2MG/ML) 20ML VIAL IV ONE (07:19)
[2024-07-31] MEDS ORDERED: HYDROmorphone HCL 2 MG/ML VL/or syr ONE (07:19)
[2024-07-31] MEDS ORDERED: MORPHINE SULFATE 4 MG/ML SYR/VIAL IV PRN (07:45)
[2024-07-31] MEDS: KETOROLAC TROMETH 30 MG/ML 1ML VIAL IV ONE (07:45)
[2024-07-31] MEDS ORDERED: HYDROmorphone HCL 2 MG/ML VL/or syr IV PRN ×4 (07:45→14:45)
[2024-07-31] MEDS: ceFAZolin 2 GM/D5W50ml 50 ML IV ONE (07:57)
[2024-07-31] MEDS: ROPIVACAINE 0.5% (5MG/ML) 20ML AMPULE IJ ONE (07:58)
[2024-07-31] MEDS: VANCOMYCIN HCL 1000 MG VL ONE (08:45)
[2024-07-31] MEDS: TRANEXAMIC ACID 20 ML ONE (08:45)
[2024-07-31] MEDS: KETOROLAC TROMETH 30 MG/ML 1ML VIAL ONE (08:45)
[2024-07-31] MEDS: MORPHINE SULF PF 5 MG/10 ML VIAL ONE (08:45)
[2024-07-31] MEDS: BUPIVACAINE 0.25% INJ 50ML VIAL ONE (08:45)
[2024-07-31] MEDS ORDERED: MORPHINE SULFATE INJ 2 MG/ml SYRG IV PRN (09:00)
[2024-07-31] MEDS ORDERED: SUGAMMADEX 200mg/2ml Vial (100MG/ML) IV ONE (10:10)
--- NOTE | 2024-07-31 10:39 | DVHOP2 ---
Operative Report - 2 Report Details Date: 07/31/24 Preop Diagnosis: Left shoulder glenohumeral osteoarthritis Postop Diagnosis: Left shoulder glenohumeral osteoarthritis Surgeon: Cristhian Vu MD Data Entry Clerk: Pretty Flores, Physician Data Entry Clerk Anesthesiologist: Dr Sarah Anesthesia: General, Regional Implant: Fx shoulder system, 32 x 8, glenosphere 36 mm, base plate +3, 3 mm normal liner, 4 peripheral base plate screws, locking Consent: The patient was informed of the risks and benefits of the procedure. These include but are not limited to complications of anesthesia, postoperative infection, incomplete relief of symptoms, recurrence of symptoms, damage to blood vessels, nerves and tendons, deep venous thrombosis, pulmonary embolism and possible need for repeat surgery in the future. Complications: None Estimated Blood Loss: 100 mL Indications for Surgery: The patient is a 79-year-old female who underwent right shoulder replacement with me around six months ago. She was very happy with the surgery and wanted to proceed with left reverse shoulder arthroplasty. Nonoperative and operative management options were discussed. Surgery in the form of reverse shoulder arthroplasty for severe glenohumeral osteoarthritis was discussed. Benefits, risks and treatment alternatives were discussed. Specific complications of the surgery such as axillary nerve injury, axillary artery injury, periprosthetic fracture during and after surgery, prosthesis dislocation, prosthetic infection, persistent instability, persistent pain, increased pain, very limited range of motion and arthrofibrosis was discussed with her and her daughter. She decided to proceed with the surgery. Name of Procedure Performed Left reverse shoulder arthroplasty with open biceps tenodesis Procedure Details Procedure Details: The patient was identified in the preoperative holding area and the surgical site was marked. The consent was verified. The patient was brought into the operating room and placed supine on the operating table. General anesthesia was administered. The patient was brought into the beachchair position at 45 degrees angle. The extremity was prepped and draped in the usual sterile manner with Betadine and ChloraPrep. A timeout was called out to confirm the identity of the patient, the nature of surgery, the site of surgery, development of implants and x-rays and allergies to medications. All the bony prominences were appropriately padded Exposure: A standard deltopectoral approach was used. An incision was made from the superior portion of the coracoid to the upper arm lateral to the axillary line. The skin and the subcutaneous tissue were dissected. The deep fascia was incised. The cephalic vein was identified. The coracoid was identified and the conjoined tendon was also identified. The pectoralis tendon, approximately 1 cm was released. The biceps tendon was identified and tenodesis was carried out. This was sutured to the pectoralis major tendon with the help of FiberWire suture and was cut proximally. Horne retractors were inserted. Adequate exposure was noted. The deltoid was released with the help of a Cruz elevator for better exposure. The subscapularis tendon was identified. The subscapularis tendon was released. Circumflex arteries and veins were coagulated. This was whipstitched for later identification and possible repair. The humeral head was now exposed with external rotation and release of the inferior capsule. This was gently dislocated using a Darrach retractor. Significant arthritis with full-thickness cartilage defect was noted. Significant osteophytes were also noted. A retractor was inserted below the CA ligament as well. Large inferior humeral head osteophyte was noted. This was gently removed with the help of a rongeur. Neurovascular structures were protected with the help of a Darrach retractor. Humeral cut: The retroversion was set to 30 degrees. An external guide was used and affixed to the bone with the help of guide pins. Next, a saw was used to create the humeral cut. This was just above the rotator cuff footprint. Next, a small drill was used to find the intramedullary canal. Next, the humeral side was now prepared. This was now reamed up to 10 mm. Glenoid exposure and implantation of glenoid prosthesis: A Darrach retractor was then inserted to retract the humeral head and expose the glenoid. Release of the anterior and posterior capsule was carried out. Release of the middle and inferior glenohumeral ligament was carried out. Superior labrum and biceps were removed. Significant cartilage damage of the glenoid was noted. Minimal retroversion was noted. A tug test was performed to confirm the position of the axillary nerve which was out of the surgical field. The inferior capsule was left intact and was released only with the help of a blunt elevator. Next, the center of the glenoid was marked with the help of a Bovie using the biceps and the coracoid as landmarks. Next a guide was inserted, a guidewire was inserted through the central portion. This was found to be in anatomic location, slightly inferior to the center. Next the central reamer was inserted. Next the hand-held peripheral reamer was inserted. The periphery was reamed, minimal cartilage was removed. Appropriate soft tissue resection was carried out. Minimal cartilage was removed to preserve the underlying bone. Next the baseplate was inserted with the help of an rn appeals A central post was applied to the final implant on the back table and inserted with gentle taps. It was rotated to align the screws in the appropriate directions. Next a drill guide was used to drill the hole for the screws. Locking and nonlocking screws were used for excellent compression and fixation. The glenosphere was now implanted on top of the baseplate over the guidewire with the screw. The screw was rotated over the glenosphere for excellent fixation. No impingement was noted. A Chary was used to test the stability of baseplate as well as the glenosphere and was found to be very secure. Next, a trial stem was inserted. The site a very good fit. The final stem was opened up and inlay fit was achieved. The joint was now trialed with a 3 mm liner and was noticed to be excellent. A final 3 mm implant was opened up and inserted on the humeral stem. This was tapped and excellent fixation was noted. Excellent stability and range of motion was noted, abduction of 120 and flexion up to 120 degrees. The shoulder did not dislocate with adduction, internal rotation and extension or with abduction and external rotation. Shuck test was acceptable with approximately 1 mm of gap with manual longitudinal traction. Dislocation with the trial was very difficult and a 3 liner was considered to be appropriate as opposed to a retentive 3 liner. The fixation was tested with the help of a Chary clamp. Excellent fixation was noted. Irrigation was given with bulb syringe lavage with bacitracin and normal saline, Betadine and vancomycin powder was applied as well. All bony debris was also removed. C-arm was used throughout the procedure for evaluation of guidewire, humeral cut, baseplate and glenosphere position and finally humerus stem position and joint reduction. The subscapularis was approximated with the help of looped Ethibond sutures through the bone tunnel. Some approximation was noted. The deep tissue, skin and the subcutaneous tissue were closed with 0 Vicryl, 2-0 Vicryl and daisy. Sterile dressing was applied. The patient was placed in a shoulder immobilizer. Condition Good Disposition Home CRISTHIAN VU MD July 31, 2024 10:39
[2024-07-31] MEDS ORDERED: HYDR1TAB97 PO (10:55)
[2024-07-31] MEDS ORDERED: CEPH500C PO (10:55)
[2024-07-31] MEDS ORDERED: ASPI-498 OR (10:55)
[2024-07-31] MEDS ORDERED: NITROGLYCERIN 0.4 MG SL TAB SL PRN (11:00)
[2024-07-31] MEDS ORDERED: ceFAZolin 1GM/50ML 50 ML IV SCH (11:00)
[2024-07-31] MEDS ORDERED: ONDANSETRON HCL 4 MG/2 ML VIAL IV PRN (11:00)
[2024-07-31 11:06] VITALS: PULSE 116; RESP 11; O2SAT 99
[2024-07-31 13:20] VITALS: BP 152/76; PULSE 65; RESP 16; TEMP 97.3; O2SAT 99
[2024-07-31] MEDS ORDERED: DEXTROSE (50%) 50ML SYRG IV PRN (14:45)
--- NOTE | 2024-07-31 14:51 | DVHHP2 ---
Review of Systems Allergies: Coded Allergies: NO KNOWN ALLERGIES (Unverified , 09/13/22) Medications Current Medications Medications Dose Ordered Sig/Stanley Route Start Time Stop Time Status Last Admin Dose Admin Lactated Ringer's 1,000 ml @ 100 mls/hr Q10H IV 07/31/24 11:00 Oxycodone/ Acetaminophen 1 tab Q4HP PRN PO 07/31/24 11:00 Hydromorphone HCl 1 mg Q2HP PRN IV 07/31/24 11:00 Ondansetron HCl 4 mg Q6HP PRN IV 07/31/24 11:00 Docusate Sodium 100 mg Q12HR PO 07/31/24 22:00 Nitroglycerin 0.4 mg Q5MINP PRN SL 07/31/24 11:00 Cefazolin Sodium 50 ml @ 50 mls/hr Q6H IV 07/31/24 14:00 08/01/24 02:59 Exam Vital Signs Vital Signs Date Time Temp Pulse Resp B/P (MAP) Pulse Ox O2 Delivery O2 Flow Rate FiO2 07/31/24 13:20 97.3 65 16 152/76 (101) 99 97.3 07/31/24 11:06 Mask 6.0 07/31/24 11:06 99 Labs/Xrays Labs Test 07/31/24 11:11 07/29/24 10:15 Range/Units POC Glucose 119 H 70-106 mg/dl White Blood Count 7.8 4.4-10.8 10^3/uL Red Blood Count 4.29 4.0-5.20 10^6/uL Hemoglobin 13.4 12.2-16.2 g/dL Hematocrit 38.8 36.0-46.0 % Mean Corpuscular Volume 90.4 80.0-100.0 fL Mean Corpuscular Hemoglobin 31.3 28.0-32.0 pg Mean Corpuscular Hemoglobin Concent 34.6 32.0-36.0 g/dL Red Cell Distribution Width 13.6 11.8-14.3 % Platelet Count 231 140-450 10^3/uL Mean Platelet Volume 7.4 6.9-10.8 fL Neutrophils (%) (Auto) 61.9 37.0-80.0 % Lymphocytes (%) (Auto) 25.4 10.0-50.0 % Monocytes (%) (Auto) 8.8 0.0-12.0 % Eosinophils (%) (Auto) 3.3 0.0-7.0 % Basophils (%) (Auto) 0.6 0.0-2.0 % Neutrophils # (Auto) 4.9 1.6-8.6 10 ^3/uL Lymphocytes # (Auto) 2.0 0.4-5.4 10 ^3/uL Monocytes # (Auto) 0.7 0-1.3 10 ^3/uL Eosinophils # (Auto) 0.3 0-0.8 10 ^3/uL Basophils # (Auto) 0 0-0.2 10 ^3/uL Nucleated Red Blood Cells 0.0 % Prothrombin Time 10.2 9.3-11.8 sec Prothrombin Time INR 0.96 0.9-1.15 Activated Partial Thromboplast Time 27.0 24.5-34.5 SEC Urine Color Yellow Yellow Urine Clarity Clear Clear Urine pH 6.0 5.0-9.0 Urine Specific [place] 1.015 1.001-1.035 Urine Protein Negative Negative Urine Ketones Negative Negative Urine Blood Trace H Negative /uL Urine Nitrite Negative Negative Urine Bilirubin Negative Negative Urine Urobilinogen Normal Negative mg/dL Urine Leukocyte Esterase 3+ Negative /uL Urine RBC 1 0 - 4 /hpf Urine Microscopic WBC 14 H 0-5 /HPF Urine Squamous Epithelial Cells Few <5 /hpf Urine Bacteria None seen None Seen /hpf Urine Hyaline Casts Few 0 - 2 /lpf Urine Glucose Normal Normal mg/dL Sodium Level 141 136-145 mmol/L Potassium Level 4.0 3.5-5.1 mmol/L Chloride Level 103 98-107 mmol/L Carbon Dioxide Level 29 20-31 mmol/L Anion Gap 9 5-15 Blood Urea Nitrogen 18 9-23 mg/dL Creatinine 0.82 0.550-1.02 mg/dL Glomerular Filtration Rate Calc 73 >90 mL/min BUN/Creatinine Ratio 22.0 H 10.0-20.0 Serum Glucose 111 H 74-106 mg/dL Calcium Level 9.8 8.7-10.4 mg/dL Total Bilirubin 1.0 0.2-1.0 mg/dL Aspartate Amino Transferase (AST) 36 13-40 U/L Alanine Aminotransferase (ALT) 33 7-40 U/L Alkaline Phosphatase 84 46-116 U/L Total Protein 7.2 5.7-8.2 g/dL Albumin 4.4 3.2-4.8 g/dL Assessment/Plan Assessment/Plan SEE DICTATED NOTE Plan discussed with: Patient, Daughter Date of Service: July 31, 2024 Billing Provider: PAM CORTEZ MD Common Visit Codes: [id number] INP/OBS CARE (HIGH) Secondary Visit Codes: [id number] CARE PLAN 30 MINUTES PAM CORTEZ MD July 31, 2024 14:50
[2024-07-31] MEDS ORDERED: FLEC100T PO (15:00)
[2024-07-31] MEDS ORDERED: METO25TA36 PO (15:00)
--- NOTE | 2024-07-31 15:04 | DVHHP ---
ADMIT DATE: 07/31/2024 HISTORY OF PRESENT ILLNESS: The patient is a 79-year-old lady who was admitted after she underwent surgery on the left shoulder for left shoulder glenohumeral osteoarthritis. The patient at this time denies any significant pain. No chest pain, no shortness of breath, no nausea or vomiting. REVIEW OF SYSTEMS: Review of rest of systems is otherwise currently negative. PAST MEDICAL HISTORY: Significant for pacemaker placement, diabetes, hypertension, hyperlipidemia, and likely atrial fibrillation. MEDICATIONS: She takes flecainide, Toprol, Lipitor, aspirin and hydrochlorothiazide. ALLERGIES: No known drug allergies. SOCIAL HISTORY: Denies smoking or alcohol. Lives with her daughter. FAMILY HISTORY: Negative. PHYSICAL EXAMINATION: GENERAL: The patient is awake and alert. VITAL SIGNS: Temperature 97.3, pulse 65 per minute, blood pressure 150/76. SHEENT: Unremarkable. NECK: No JVD. No pedal edema. LUNGS: Equal bilaterally. No added sounds. CARDIOVASCULAR: S1 and S2 is regular. No murmurs. ABDOMEN: Soft. There is no organomegaly. NEUROLOGIC: Nonfocal. MUSCULOSKELETAL: The left shoulder is currently in a sling. ASSESSMENT AND PLAN: * Diabetes mellitus for which she was placed on sliding scale insulin. * Hypertension. * Hyperlipidemia. * Likely urinary tract infection for which she will be placed on IV Rocephin. * Likely atrial fibrillation. * History of pacemaker. * Status post left shoulder surgery for glenohumeral osteoarthritis. She patient will be followed up by Dr. Vu. ADVANCED CARE PLANNING: The patient is a FULL CODE- Time spent was 18 minutes. MD TRUDY Yancey/CAROLE TID: [id number] RECEIPT: [id number] MTDD
--- NOTE | 2024-07-31 15:28 | DVH ---
EXAM: XY L SHOULDER 1V XRAY CLINICAL INDICATION: LEFT SHOULDER REVERSE TOTAL ARTHRO TECHNIQUE: XY L SHOULDER 1V XRAY Comparison: XY R SHOULDER 1V XRAY on DOS: 04/03/24 FINDINGS/IMPRESSION: 2 C-arm images of intraoperative film of the left shoulder undergoing left shoulder reverse arthropla sty. There is a left-sided pacemaker. Details of the procedure and operative notes Fluoroscopy time 14.7 seconds
--- NOTE | 2024-07-31 15:45 | DVH ---
C-ARM FLUOROSCOPY: PROCEDURE: left total shoulder FLUOROSCOPY TIME: 0.95 mgy DAP: 14.7 sec mgy FINDINGS: Spot intraoperative C arm radiographs demonstrating left total shoulder. IMPRESSION: Please refer to surgical report for detailed findings.
[2024-07-31 16:42] VITALS: BP 156/83; PULSE 65; RESP 16; TEMP 97.5; O2SAT 94
[2024-07-31] MEDS: cefTRIAXone 1GM/50ML D5W 50 ML IV ONE (16:53)
[2024-07-31] MEDS: ACCU-CHEK COMFORT CURVE STRIP VI SCH (17:00)
[2024-07-31] MEDS: InsuLIN REG 1unit/0.01ml Soln (100units/ml) SC SCH (17:00)
[2024-07-31] MEDS: ceFAZolin 1GM/50ML 50 ML IV SCH ×2 (18:21→23:44)
[2024-07-31] MEDS: ACCU-CHEK COMFORT CURVE STRIP VI ONE (19:00)
[2024-07-31 20:00] VITALS: PULSE 65
[2024-07-31 21:00] VITALS: BP 116/67; PULSE 65; RESP 17; TEMP 97.8; O2SAT 98
[2024-07-31] MEDS: FLECAINIDE ACETATE 50 MG TAB PO SCH (21:25)
[2024-07-31] MEDS: DOCUSATE SOD 100 MG CAP PO SCH (21:25)
[2024-07-31] MEDS: LACTATED RINGER'S 1,000 ML IV SCH (21:35)
[2024-08-01 01:00] VITALS: BP 100/56; PULSE 65; RESP 16; TEMP 97.8; O2SAT 97
[2024-08-01 05:00] VITALS: BP 124/64; PULSE 65; RESP 16; TEMP 97.7; O2SAT 99
[2024-08-01] MEDS: OXYCODONE W/ ACETAMINOPHEN 5/325MG TABLET PO PRN (05:51)
[2024-08-01 06:26] LABS: Alanine Aminotransferase 23 U/L (7-40); Albumin 3.6 g/dL (3.2-4.8); Alkaline Phosphatase 61 U/L (46-116); Anion Gap 9 (5-15); Aspartate Aminotransferase 33 U/L (13-40); BUN/Creatinine Ratio 27.6 (10.0-20.0); Bilirubin, Total 0.5 mg/dL (0.2-1.0); Blood Urea Nitrogen 21 mg/dL (9-23); Carbon Dioxide 24 mmol/L (20-31); Chloride 106 mmol/L (98-107); Potassium 4.1 mmol/L (3.5-5.1); Sodium 139 mmol/L (136-145); Total Protein 5.9 g/dL (5.7-8.2)
[2024-08-01 06:28] LABS: Calcium 8.4 mg/dL (8.7-10.4); Glucose 177 mg/dL (74-106)
[2024-08-01 06:33] LABS: Basophils # (auto) 0 10 ^3/uL (0-0.2); Basophils % (auto) 0.1 % (0.0-2.0); Eosinophils # (auto) 0 10 ^3/uL (0-0.8); Hematocrit 29.1 % (36.0-46.0); Hemoglobin 10.1 g/dL (12.2-16.2); Lymphocytes # (auto) 1.4 10 ^3/uL (0.4-5.4); Lymphocytes % (auto) 10.2 % (10.0-50.0); Mean Corpuscular Hemoglobin 31.2 pg (28.0-32.0); Mean Corpuscular Hgb Conc. 34.6 g/dL (32.0-36.0); Mean Corpuscular Volume 90.3 fL (80.0-100.0); Monocytes # (auto) 0.8 10 ^3/uL (0-1.3); Monocytes % (auto) 6.3 % (0.0-12.0); Neutrophils # (auto) 11.2 10 ^3/uL (1.6-8.6); Neutrophils % (auto) 83.4 % (37.0-80.0); Platelet Count (auto) 189 10^3/uL (140-450); Red Blood Cells 3.22 10^6/uL (4.0-5.20); Red Cell Distribution Width 13.6 % (11.8-14.3); White Blood Cell 13.4 10^3/uL (4.4-10.8)
--- NOTE | 2024-08-01 07:18 | DVHDS2 ---
Discharge Summary Date of Admission July 31, 2024 at 10:54 Date of Discharge: August 01, 2024 Labs/Diagnostic Data: Laboratory Results Test 08/01/24 05:50 08/01/24 05:00 07/29/24 10:15 POC Glucose 160 mg/dl (70-106) Sodium Level 139 mmol/L (136-145) Potassium Level 4.1 mmol/L (3.5-5.1) Chloride Level 106 mmol/L (98-107) Carbon Dioxide Level 24 mmol/L (20-31) Anion Gap 9 (5-15) Blood Urea Nitrogen 21 mg/dL (9-23) Creatinine 0.76 mg/dL (0.550-1.02) Glomerular Filtration Rate Calc 80 mL/min (>90) BUN/Creatinine Ratio 27.6 (10.0-20.0) Serum Glucose 177 mg/dL (74-106) Calcium Level 8.4 mg/dL (8.7-10.4) Total Bilirubin 0.5 mg/dL (0.2-1.0) Aspartate Amino Transferase (AST) 33 U/L (13-40) Alanine Aminotransferase (ALT) 23 U/L (7-40) Alkaline Phosphatase 61 U/L (46-116) Total Protein 5.9 g/dL (5.7-8.2) Albumin 3.6 g/dL (3.2-4.8) Eosinophils (%) (Auto) 3.3 % (0.0-7.0) Eosinophils # (Auto) 0.3 10 ^3/uL (0-0.8) Basophils # (Auto) 0 10 ^3/uL (0-0.2) Nucleated Red Blood Cells 0.0 % Prothrombin Time 10.2 sec (9.3-11.8) Prothrombin Time INR 0.96 (0.9-1.15) Activated Partial Thromboplast Time 27.0 SEC (24.5-34.5) Urine Color Yellow (Yellow) Urine Clarity Clear (Clear) Urine pH 6.0 (5.0-9.0) Urine Specific [place] 1.015 (1.001-1.035) Urine Protein Negative (Negative) Urine Ketones Negative (Negative) Urine Blood Trace /uL (Negative) Urine Nitrite Negative (Negative) Urine Bilirubin Negative (Negative) Urine Urobilinogen Normal mg/dL (Negative) Urine Leukocyte Esterase 3+ /uL (Negative) Urine RBC 1 /hpf (0 - 4) Urine Microscopic WBC 14 /HPF (0-5) Urine Squamous Epithelial Cells Few /hpf (<5) Urine Bacteria None seen /hpf (None Seen) Urine Hyaline Casts Few /lpf (0 - 2) Urine Glucose Normal mg/dL (Normal) Other Laboratory Tests 08/01/24 05:00 Brief Hx & Hospital Course: Patient was brought to the hospital yesterday to undergo a left reverse shoulder arthroplasty. She tolerated the procedure well without complications and was kept overnight for postoperative observation. She denied any overnight events and has remained medically stable and only reports of some postoperative shoulder pain that is being well managed with the help of pain medication as well as some numbness and tingling to her left arm coming from her neck that has resolved this morning. Patient is otherwise feeling well denying any other complaints or concerns during my evaluation and is ready to go home. Condition at Discharge: Good Final Diagnosis/Problems List Left shoulder glenohumeral osteoarthritis Discharge Disposition: Home Discharge Instruct/Medications Diet: Regular Activity: See Comment Activity comment: Patient to remain in shoulder immobilizer until her follow up visit. Follow Up/Referral: I instructed the patient to follow up with our office in 10-14 days for her 1st postoperative evaluation. Medications: Rx sent via our outpatient EMR system Discharge Statement: "Patient was advised to return to the ER or call 911 if any headaches, dizziness, shortness of breath, chest pain, abdominal pain, bleeding, fevers, or worsening of medical condition. Patient was counseled about treatment plan, medications, possible side effects, patientverbalized understanding. All questions were answered to the best of my ability. This discharge took greater then 30 minutes in planning, reviewing documentation, counseling the patient, and discussing with other team members." ASSESSMENT ASSESSMENT Assessment Left shoulder glenohumeral osteoarthritis JESI BARRY August 01, 2024 07:18
--- NOTE | 2024-08-01 07:21 | DVHPN2 ---
Progress Note - Dictate Date Seen: August 01, 2024 Medical Necessity Reason Pt with a Central, PICC or Fol: No Subjective She will with the patient and her daughter who was there translating and reports that the patient is doing well with her pain being well managed with the help pain medication. Patient's daughter reports that the patients numbness and tingling that she was experiencing going down from her neck to her left arm has resolved this morning. Patient is otherwise feeling well denying any other complaint or concern during my evaluation. vital signs Vital Sign Date Time Temp Pulse Resp B/P (MAP) Pulse Ox O2 Delivery O2 Flow Rate FiO2 08/01/24 05:00 97.7 65 16 124/64 (84) 99 97.7 07/31/24 20:00 Nasal Cannula* 2 28 Total Intake and Output 07/31/24 07/31/24 08/01/24 15:00 23:00 07:00 Intake Total 170 ml 450 ml 600 ml Balance 170 ml 450 ml 600 ml medications Current Medications Medications Dose Ordered Sig/Stanley Route Start Time Stop Time Status Last Admin Dose Admin Lactated Ringer's 1,000 ml @ 100 mls/hr Q10H IV 07/31/24 11:00 07/31/24 21:35 100 MLS/HR Oxycodone/ Acetaminophen 1 tab Q4HP PRN PO 07/31/24 11:00 08/01/24 05:51 1 TAB Ondansetron HCl 4 mg Q6HP PRN IV 07/31/24 11:00 Docusate Sodium 100 mg Q12HR PO 07/31/24 22:00 07/31/24 21:25 100 MG Nitroglycerin 0.4 mg Q5MINP PRN SL 07/31/24 11:00 Hydromorphone HCl 1 mg Q3HP PRN IV 07/31/24 14:45 Diagnostic Test (Pha) 1 strip ACHS 07/31/24 17:00 08/01/24 06:03 1 STRIP Insulin Human Regular ACHS SC 07/31/24 17:00 08/01/24 06:04 2 UNITS Dextrose 50 ml UD PRN IV 07/31/24 14:45 Flecainide Acetate 50 mg Q12HR PO 07/31/24 22:00 07/31/24 21:25 50 MG Metoprolol Succinate 25 mg DAILY PO 08/01/24 10:00 Ceftriaxone Sodium 50 ml @ 100 mls/hr DAILY@09 IV 08/01/24 09:00 Hydrochlorothiazide 12.5 mg DAILY PO 08/01/24 10:00 objective A&O x4 in no acute distress Shoulder range of motion not fully evaluated as patient remains in shoulder immobilizer Aquacel dressing clean, dry, and intact No distal edema or calf tenderness to palpation Neurovascularly intact with cap refill less than 2 seconds laboratory and microbiology Laboratory Tests 08/01/24 05:00 Test 08/01/24 05:00 Range/Units Serum Glucose 177 H 74-106 mg/dL Assessment/Plan Patient to be discharged home and advised to remain in shoulder immobilizer for approximately six weeks from date of surgery. We will have the patient follow up with our office in 10-14 days for her 1st postoperative evaluation. I advised the patient to take it easy until her 1st follow up visit. Rx sent via our outpatient EMR system. She understood and agreed. Plan discussed with: Patient, Daughter BARRYBECKYZE ENCARNACION August 01, 2024 07:20
[2024-08-01] MEDS: METOCLOPRAMIDE HCL 5MG/ml INJ 2ml VIAL IV ONE (07:45)
[2024-08-01 08:00] VITALS: PULSE 60; PULSE 65; RESP 18; O2SAT 96
[2024-08-01 09:00] VITALS: BP 129/48; PULSE 60; RESP 17; TEMP 98; O2SAT 96
[2024-08-01] MEDS: cefTRIAXone 1GM/50ML D5W 50 ML IV SCH (09:04)
[2024-08-01] MEDS: hydroCHLOROthiazide 25 MG TAB PO SCH (09:06)
[2024-08-01] MEDS: METOPROLOL SUCCINATE XL 50 MG TAB PO SCH (09:08)
[2024-08-01 11:56] VITALS: BP 129/48; PULSE 60; RESP 17; TEMP 98; O2SAT 96
--- NOTE | 2024-08-01 13:38 | DVHPN2 ---
Subjective The patient seen and examined at bedside. No complains. Reviewed: Care Plan, H&P, Labs, Medications, Previous Orders, Radiology Changes from previous H/P or p: No Changes Objective Vitals Vital Signs Date Time Temp Pulse Resp B/P (MAP) Pulse Ox O2 Delivery O2 Flow Rate FiO2 08/01/24 11:56 98.0 60 17 96 08/01/24 09:08 129/48 08/01/24 08:00 Room Air* 0 N/A Nasal Cannula* Intake/Output Intake and Output 08/01/24 07:00 Intake Total 1220 ml Balance 1220 ml Intake Oral 900 ml IV Total 320 ml # Voids 1 General Appearance: Alert, Oriented X3, Cooperative, No acute distress HEENT: Atraumatic, PERRLA, EOMI, Mucous membr. moist/pink Neck: Supple Lungs: Clear to auscultation, Normal air movement Cardiovascular: Regular rate, Normal S1, Normal S2, No murmurs, Gallops, Rubs Abdomen: Normal bowel sounds, Soft, No tenderness Neuro: Cranial nerves 3-12 NL Psych/Mental Status: Mental status NL Medications Current Medications Medications Dose Ordered Sig/Stanley Route Start Time Stop Time Status Last Admin Dose Admin Lactated Ringer's 1,000 ml @ 100 mls/hr Q10H IV 07/31/24 11:00 07/31/24 21:35 100 MLS/HR Oxycodone/ Acetaminophen 1 tab Q4HP PRN PO 07/31/24 11:00 08/01/24 05:51 1 TAB Ondansetron HCl 4 mg Q6HP PRN IV 07/31/24 11:00 Docusate Sodium 100 mg Q12HR PO 07/31/24 22:00 08/01/24 09:06 100 MG Nitroglycerin 0.4 mg Q5MINP PRN SL 07/31/24 11:00 Hydromorphone HCl 1 mg Q3HP PRN IV 07/31/24 14:45 Diagnostic Test (Pha) 1 strip ACHS 07/31/24 17:00 08/01/24 11:22 1 STRIP Insulin Human Regular ACHS SC 07/31/24 17:00 08/01/24 11:36 3 UNITS Dextrose 50 ml UD PRN IV 07/31/24 14:45 Flecainide Acetate 50 mg Q12HR PO 07/31/24 22:00 08/01/24 09:06 50 MG Metoprolol Succinate 25 mg DAILY PO 08/01/24 10:00 08/01/24 09:08 25 MG Ceftriaxone Sodium 50 ml @ 100 mls/hr DAILY@09 IV 08/01/24 09:00 08/01/24 09:04 100 MLS/HR Hydrochlorothiazide 12.5 mg DAILY PO 08/01/24 10:00 08/01/24 09:06 12.5 MG Laboratory Results Laboratory Tests 08/01/24 05:00 Chemistry Test 08/01/24 05:00 Albumin 3.6 g/dL (3.2-4.8) Calcium Level 8.4 mg/dL (8.7-10.4) L Total Protein 5.9 g/dL (5.7-8.2) LFT Test 08/01/24 05:00 Alanine Aminotransferase (ALT) 23 U/L (7-40) Alkaline Phosphatase 61 U/L (46-116) Aspartate Amino Transferase (AST) 33 U/L (13-40) Total Bilirubin 0.5 mg/dL (0.2-1.0) HgA1c, TSH Test 08/01/24 05:00 Hemoglobin A1c 6.0 % A1C (<5.7) H Urinalysis Test 07/29/24 10:15 Urine Color Yellow (Yellow) Urine Clarity Clear (Clear) Urine pH 6.0 (5.0-9.0) Urine Specific [place] 1.015 (1.001-1.035) Urine Protein Negative (Negative) Urine Ketones Negative (Negative) Urine Blood Trace /uL (Negative) H Urine Nitrite Negative (Negative) Urine Bilirubin Negative (Negative) Urine Urobilinogen Normal mg/dL (Negative) Urine Leukocyte Esterase 3+ /uL (Negative) Urine RBC 1 /hpf (0 - 4) Urine Microscopic WBC 14 /HPF (0-5) H Urine Squamous Epithelial Cells Few /hpf (<5) Urine Bacteria None seen /hpf (None Seen) Urine Hyaline Casts Few /lpf (0 - 2) Urine Glucose Normal mg/dL (Normal) Labs and/or images reviewed: Labs reviewed by me Assessment/Plan Assessment/Plan * Diabetes mellitus for which she was placed on sliding scale insulin. * Hypertension. * Hyperlipidemia. * Likely urinary tract infection for which she will be placed on IV Rocephin. * Likely atrial fibrillation. * History of pacemaker. * Status post left shoulder surgery for glenohumeral osteoarthritis. Continuing current management. Continuing pain control. Patient will be discharged today per orthopedic surgeon. Follow up with orthopedic surgeon and PCP per schedule. Plan discussed with: Patient Date of Service: August 01, 2024 Billing Provider: REMI BANSAL MD Common Visit Codes: [id number] INP/OBS CARE(HIGH) REMI BANSAL MD August 01, 2024 13:38
== END 2024-08-01 15:00 | disposition home or self-care (01) | DRG 322 ==
LOC: SUR 07:02 → OVERFLOW 10:54 → TELE-CENTR 12:30
PROVIDERS: ADMIT Internal Medicine; ATTEND Internal Medicine
PROC: 0LS40ZZ Reposition Left Upper Arm Tendon, Open Approach (ICD-10-PCS; 2024-07-31)
PROC: 0RHK04Z Insertion of Internal Fixation Device into Left Shoulder Joint, Open Approach (ICD-10-PCS; 2024-07-31)
PROC: 0RRK00Z Replacement of Left Shoulder Joint with Reverse Ball and Socket Synthetic Substitute, Open Approach (ICD-10-PCS; principal; 2024-07-31 07:56)
DX: M19.012 Primary osteoarthritis, left shoulder (principal); E11.9 Type 2 diabetes mellitus without complications; I10 Essential (primary) hypertension; E78.5 Hyperlipidemia, unspecified; I48.91 Unspecified atrial fibrillation; Z96.611 Presence of right artificial shoulder joint; Z95.0 Presence of cardiac pacemaker; N39.0 Urinary tract infection, site not specified
CPT/HCPCS: 36415; 73020; 76000; 80053; 81001; 82962; 83036; 85025; 85610; 85730; 86850; 86900; 86901; 97163; A4565; G0378; J1100; J1815; J1885; J2250; J2405; J3490